=== PATIENT | male | born 1955 | race Caucasian/White ===

== ENCOUNTER 2020-10-09 19:08 | Observation (INO) | payer BC ==
[2020-10-09] MEDS ORDERED: Sodium Chloride 0.9% 10 ML Syringe FLUSH PRN (19:30)
[2020-10-09] MEDS ORDERED: Sodium Chloride 0.9% 2.5 ML Syringe FLUSH PRN (19:30)
[2020-10-09] MEDS ORDERED: Aspirin 81 MG Tab.Chew PO ONE (19:30)
[2020-10-09] MEDS: Nitroglycerin 0.4 MG Tab.SL SL PRN ×3 (19:39→19:49)
--- NOTE | 2020-10-09 20:06 | CR ---
For Patients: As a result of the Cures Act, medical imaging exams and procedure reports are released immediately into your electronic medical record. You may view this report before your referring provider. If you have questions, please contact your health care provider. INDICATION: Shortness of breath TECHNIQUE: Chest radiograph 1 view COMPARISON: None FINDINGS: Moderate degradation of image quality noted due to body habitus. Mediastinum: The mediastinum is normal in appearance. Moderate cardiomegaly is noted but may be accentuated by portable technique. Lung: Mild bibasilar subsegmental atelectasis is present within the medial lung bases. No sign of pleural effusion seen. No pneumothorax is identified. Bone and Soft tissue: Unremarkable for age. IMPRESSION: 1. Moderate cardiomegaly is noted but may be accentuated by portable technique. Dictated by Jose Alejandro Leggett MD @ 10/09/2020 8:04:15 PM Dictated by: Jose Alejandro Leggett MD @ 10/09/2020 20:04:20 (Electronically Signed)
[2020-10-09] MEDS ORDERED: Morphine 4 MG/ML Syringe IVPUSH ONE ×2 (20:12→20:39)
[2020-10-09] MEDS ORDERED: Ondansetron 4 MG/2 ML SDV IVPUSH ONE (20:13)
[2020-10-09 20:15] LABS: BLOOD UREA NITROGEN,BUN 20 mg/dL (7.0-18.0); CARBON DIOXIDE,CO2 24.5 mmol/L (21.0-32.0); CHLORIDE,CL 104 mmol/L (98-107); GLUCOSE RANDOM 174 mg/dL (74-106); POTASSIUM,K 3.8 mmol/L (3.5-5.1); SODIUM,NA 139 mmol/L (136-148)
--- NOTE | 2020-10-09 20:42 | EDM.PDOC ---
ED HPI GENERAL MEDICAL PROBLEM - General Chief Complaint: Chest Pain Stated Complaint: CHEST PAINS Time Seen by Provider: 10/09/20 19:20 - History of Present Illness INITIAL COMMENTS - FREE TEXT/NARRATIVE: HISTORY AND PHYSICAL: History of present illness: This is a 65-year-old gentleman with a history significant for rate controlled atrial fibrillation who presents ER today complaining of chest pain and discomfort that started earlier this evening. Patient describes the pain as a pressure sensation in his midsternal area radiating to his scapula. Patient denies any pain rating to his jaw or arms. Patient reports that he has had associated diaphoresis and shortness of breath with the discomfort. Patient denies any nausea or vomiting. Patient reports no significant change with rest or exertion. Patient reports no significant change with deep inspiration or coughing. Patient reports that he has tried antacids at home without any improvement in his discomfort. 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 He reports that when he was at Dr. Hutchinson's office that they had discussed starting him on a anticoagulant as well as nitroglycerin but he has not received any nitroglycerin. Patient reports that he is currently not on any anticoagulation therapy for his atrial fibrillation nor has he been on any anticoagulation therapy in the past for his atrial fibrillation. Patient denies any recent fevers, shakes, chills, nausea, vomiting, diarrhea, dysuria, frequency, urgency, URI symptoms, abdominal pain. Review of systems: As per history of present illness and below otherwise all systems reviewed and negative. Past medical history: As per history of present illness and as reviewed below otherwise no ncontributory. Surgical history: As per history of present illness and as reviewed below otherwise noncontributory. Social history: No reported history of drug abuse. Family history: As per history of present illness and as reviewed below otherwise noncontributory. Physical exam: This patient was seen and evaluated during the 2019 SARS-CoV-2 novel coronavirus pandemic period. Community viral transmission is ongoing at time of this encounter and the emergency department is operating under pandemic response procedures. Constitutional: Patient is oriented to person, place, and time. Appears well- developed and well-nourished. No distress. HEENT: Moist mucous membranes Head: Normocephalic and atraumatic Eyes: Right eye exhibits no discharge. Left eye exhibits no discharge. No s cleral icterus Neck: Normal range of motion. No tracheal deviation present. Cardiovascular: Irregularly irregular heart rate of 84 Pulmonary: Effort normal, no respiratory distress. Abdominal: No distention Musculoskeletal: Normal range of motion Neurologic: Alert and oriented to person, place and time. Skin: [place], warm and dry. Psychiatric: Normal mood and affect. Behavior is normal. Judgment and thought content normal. Nursing note and vital signs have been reviewed Patient with nonreproducible anterior chest wall pain. Diagnostics: EKG: As interpreted by ER physician: [facility]ano: Nonspecific ST-T wave abnormalities Normal axis No evidence of ST elevation PA Atrial fibrillation with a heart rate of 104. Chest Xray: Slightly enlarged cardiac silhouette No infiltrates or effusions identified. No PTX No evidence of acute bony fracture. As interpreted by ER MD: [employer]: Aspirin 324 mg p.o. Sublingual nitroglycerin every 5 minutes x3 without any significant change in his pain or discomfort Morphine 4 mg IV x2 Assessment and plan: This is a 65-year-old gentleman with a history of atrial fibrillation who reports that he has had a negative stress test approximately 3 to 4 years ago who presents to the ER today secondary to intermittent episodes of chest pain and discomfort. Patient reports that this evening the pain started while doing slight amount of exertion and has been constant. Patient has been given nitroglycerin as well as morphine without any significant change in his pain. Patient's chest x-ray reveals cardiomegaly. Patient's D-dimer is negative. Patient's presentation does not appear to be consistent with a dissection or TAD. Given patient's age and symptoms, patient will be admitted to the hospital for further cardiac evaluation. Definitive disposition and diagnosis as appropriate pending reevaluation and review of above. chest Pain Score (Numeric/FACES): 7 - Related Data Allergies Allergy/AdvReac Type Severity Reaction Status Date / Time No Known Allergies Allergy Verified 10/09/20 19:20 Home Meds: Home Meds Metoprolol Succinate [Toprol XL] 25 mg PO DAILY 03/01/16 [History] Past Medical History HEENT History: Reports: Other (See Below) Other HEENT History: wears glasses Cardiovascular History: Reports: Arrhythmia Other Cardiovascular History: states takes Metoprolol for a cardiac arrythmia Respiratory History: Reports: None Gastrointestinal History: Reports: PUD Genitourinary History: Reports: Renal Calculus Musculoskeletal History: Reports: Fracture Neurological History: Reports: None Psychiatric History: Reports: None Endocrine/Metabolic History: Reports: Obesity/BMI 30+ Hematologic History: Reports: None Immunologic History: Reports: None Oncologic (Cancer) History: Reports: None Dermatologic History: Reports: None - Infectious Disease History Infectious Disease History: Reports: Chicken Pox, Mumps - Past Surgical History Head Surgeries/Procedures: Reports: None Cardiovascular Surgical History: Reports: None Male Surgical History: Reports: None Musculoskeletal Surgical History: Reports: Carpal Tunnel Social & Family History - Family History Family Medical History: No Pertinent Family History ED ROS GENERAL - Review of Systems Review Of Systems: See Below ED EXAM, GENERAL - Physical Exam Exam: See Below Course - Vital Signs Last Recorded V/S: Last Vital Signs Temp 97.0 F 10/09/20 19:21 Pulse 100 10/09/20 20:45 Resp 14 10/09/20 20:45 BP 116/71 10/09/20 20:45 Pulse Ox 95 10/09/20 20:45 - Orders/Labs/Meds Orders: Active Orders 24 hr Category Date Time Status Cardiac Monitoring [RC] . DIRECTED Care 10/09/20 19:30 Active EKG Documentation Completion [RC] AM Care 10/09/20 19:30 Active Pulse Oximetry [RC] ASDIRECTED Care 10/09/20 19:30 Active Sodium Chloride 0.9% [Saline Flush] Med 10/09/20 19:30 Active 10 ml FLUSH ASDIRECTED PRN Sodium Chloride 0.9% [Saline Flush] Med 10/09/20 19:30 Active 2.5 ml FLUSH ASDIRECTED PRN Saline Lock Insert [OM.PC] Stat Oth 10/09/20 19:30 Ordered Medication Orders Sodium Chloride (Sodium Chloride 0.9% 10 Ml Syringe) 10 ml FLUSH ASDIRECTED PRN PRN Reason: Keep Vein Open Last Admin: 10/09/20 19:53 Dose: 10 ml Documented by: [id number] Sodium Chloride (Sodium Chloride 0.9% 2.5 Ml Syringe) 2.5 ml FLUSH ASDIRECTED PRN PRN Reason: Keep Vein Open Last Admin: 10/09/20 19:53 Dose: 2.5 ml Documented by: [email or web address] Labs: Laboratory Tests 10/09/20 10/09/20 10/09/20 Range/Units 19:17 19:49 19:49 WBC 12.35 H (4.0-11.0) K/uL RBC 5.23 (4.50-5.90) M/uL Hgb 17.4 H (13.0-17.0) g/dL Hct 48.5 (38.0-50.0) % MCV 92.7 (80.0-98.0) fL MCH 33.3 H (27.0-32.0) pg MCHC 35.9 (31.0-37.0) g/dL RDW Std Deviation 46.5 (28.0-62.0) fl RDW Coeff of Ricardo 14 (11.0-15.0) % Plt Count 271 (150-400) K/uL MPV 11.00 (7.40-12.00) fL Neut % (Auto) 63.9 (48.0-80.0) % Lymph % (Auto) 25.5 (16.0-40.0) % Towner % (Auto) 7.7 (0.0-15.0) % Eos % (Auto) 2.7 (0.0-7.0) % Baso % (Auto) 0.2 (0.0-1.5) % Neut # (Auto) 7.9 H (1.4-5.7) K/uL Lymph # (Auto) 3.2 H (0.6-2.4) K/uL Towner # (Auto) 1.0 H (0.0-0.8) K/uL Eos # (Auto) 0.3 (0.0-0.7) K/uL Baso # (Auto) 0.0 (0.0-0.1) K/uL Nucleated RBC % 0.7 /100WBC Nucleated RBCs # 0 K/uL INR 1.06 APTT (18.6-31.3) SEC D-Dimer, Quantitative 0.48 (0.0-0.50) mg/L FEU Sodium 139 (136-148) mmol/L Potassium 3.8 (3.5-5.1) mmol/L Chloride 104 (98-107) mmol/L Carbon Dioxide 24.5 (21.0-32.0) mmol/L BUN 20 H (7.0-18.0) mg/dL Creatinine 1.5 H (0.8-1.3) mg/dL Est Cr Clr Drug Dosing 52.29 mL/min Estimated GFR (MDRD) 47.0 ml/min Glucose 174 H (74-106) mg/dL Calcium 7.9 L (8.5-10.1) mg/dL Magnesium 1.9 (1.8-2.4) mg/dL Total Bilirubin 0.4 (0.2-1.0) mg/dL AST 16 (15-37) IU/L ALT 19 (14-63) IU/L Alkaline Phosphatase 71 (46-116) U/L Troponin I < 0.050 (0.000-0.056) ng/mL B-Natriuretic Peptide (<100) PG/ML Total Protein 6.5 (6.4-8.2) g/dL Albumin 3.3 L (3.4-5.0) g/dL Globulin 3.2 (2.6-4.0) g/dL Albumin/Globulin Ratio 1.0 (0.9-1.6) 10/09/20 10/09/20 Range/Units 19:49 19:49 WBC (4.0-11.0) K/uL RBC (4.50-5.90) M/uL Hgb (13.0-17.0) g/dL Hct (38.0-50.0) % MCV (80.0-98.0) fL MCH (27.0-32.0) pg MCHC (31.0-37.0) g/dL RDW Std Deviation (28.0-62.0) fl RDW Coeff of Ricardo (11.0-15.0) % Plt Count (150-400) K/uL MPV (7.40-12.00) fL Neut % (Auto) (48.0-80.0) % Lymph % (Auto) (16.0-40.0) % Towner % (Auto) (0.0-15.0) % Eos % (Auto) (0.0-7.0) % Baso % (Auto) (0.0-1.5) % Neut # (Auto) (1.4-5.7) K/uL Lymph # (Auto) (0.6-2.4) K/uL Towner # (Auto) (0.0-0.8) K/uL Eos # (Auto) (0.0-0.7) K/uL Baso # (Auto) (0.0-0.1) K/uL Nucleated RBC % /100WBC Nucleated RBCs # K/uL INR APTT 22.5 (18.6-31.3) SEC D-Dimer, Quantitative (0.0-0.50) mg/L FEU Sodium (136-148) mmol/L Potassium (3.5-5.1) mmol/L Chloride (98-107) mmol/L Carbon Dioxide (21.0-32.0) mmol/L BUN (7.0-18.0) mg/dL Creatinine (0.8-1.3) mg/dL Est Cr Clr Drug Dosing mL/min Estimated GFR (MDRD) ml/min Glucose (74-106) mg/dL Calcium (8.5-10.1) mg/dL Magnesium (1.8-2.4) mg/dL Total Bilirubin (0.2-1.0) mg/dL AST (15-37) IU/L ALT (14-63) IU/L Alkaline Phosphatase (46-116) U/L Troponin I (0.000-0.056) ng/mL B-Natriuretic Peptide 82 (<100) PG/ML Total Protein (6.4-8.2) g/dL Albumin (3.4-5.0) g/dL Globulin (2.6-4.0) g/dL Albumin/Globulin Ratio (0.9-1.6) Meds: Medications Generic Name Dose Route Start Last Admin Trade Name Freq PRN Reason Stop Dose Admin Sodium Chloride 10 ml 10/09/20 19:30 10/09/20 19:53 Sodium Chloride 0.9% 10 Ml Syringe FLUSH 10 ml ASDIRECTED PRN Administration Keep Vein Open Sodium Chloride 2.5 ml 10/09/20 19:30 10/09/20 19:53 Sodium Chloride 0.9% 2.5 Ml Syringe FLUSH 2.5 ml ASDIRECTED PRN Administration Keep Vein Open Discontinued Medications Generic Name Dose Route Start Last Admin Trade Name Freq PRN Reason Stop Dose Admin Aspirin 324 mg 10/09/20 19:30 10/09/20 19:39 Aspirin 81 Mg Tab.Chew PO 10/09/20 19:31 324 mg ONETIME ONE Administration Morphine Sulfate 4 mg 10/09/20 20:12 10/09/20 20:19 Morphine 4 Mg/Ml Syringe IVPUSH 10/09/20 20:13 4 mg ONETIME ONE Administration Morphine Sulfate 4 mg 10/09/20 20:39 10/09/20 20:48 Morphine 4 Mg/Ml Syringe IVPUSH 10/09/20 20:40 4 mg ONETIME ONE Administration Nitroglycerin 0.4 mg 10/09/20 19:30 10/09/20 19:49 Nitroglycerin 0.4 Mg Tab.Sl SL 0.4 mg Q5M PRN Administration Chest Pain Ondansetron HCl 4 mg 10/09/20 20:13 10/09/20 20:19 Ondansetron 4 Mg/2 Ml Sdv IVPUSH 10/09/20 20:14 4 mg ONETIME ONE Administration Departure - Departure Time of Disposition: 20:42 Disposition: Refer to Observation Condition: Good Clinical Impression: Acute coronary syndrome - Discharge Information Sepsis Event Note (ED) - Evaluation Sepsis Screening Result: No Definite Risk - Focused Exam Vital Signs: Vital Signs Temp Pulse Resp BP BP Pulse Ox 10/09/20 19:49 126/77 10/09/20 19:43 133/78 10/09/20 19:39 118/82 10/09/20 19:21 97.0 F 107 H 18 118/82 99 - My Orders Last 24 Hours: My Active Orders 10/09/20 19:30 Cardiac Monitoring [RC] . DIRECTED EKG Documentation Completion [RC] AM Pulse Oximetry [RC] ASDIRECTED Sodium Chloride 0.9% [Saline Flush] 10 ml FLUSH ASDIRECTED PRN Sodium Chloride 0.9% [Saline Flush] 2.5 ml FLUSH ASDIRECTED PRN Saline Lock Insert [OM.PC] Stat - Assessment/Plan Last 24 Hours: My Active Orders 10/09/20 19:30 Cardiac Monitoring [RC] . DIRECTED EKG Documentation Completion [RC] AM Pulse Oximetry [RC] ASDIRECTED Sodium Chloride 0.9% [Saline Flush] 10 ml FLUSH ASDIRECTED PRN Sodium Chloride 0.9% [Saline Flush] 2.5 ml FLUSH ASDIRECTED PRN Saline Lock Insert [OM.PC] Stat
[2020-10-09 22:51] VITALS: BP 134/79
[2020-10-09] MEDS ORDERED: Alum Hydrox/Mag Hydrox/Simeth 15 ML, Lidocaine 2% 5 ML PO ONE ×2 (23:19)
[2020-10-09] MEDS ORDERED: Sodium Chloride 0.9% 500 ML IV SCH (23:30)
[2020-10-09] MEDS ORDERED: Metoprolol Tartrate 50 MG Tab PO SCH (23:30)
--- NOTE | 2020-10-09 23:41 | PCM.HP.2 ---
H&P History of Present Illness - General Date of Service: 10/09/20 Admit Problem/Dx: Admission Diagnosis/Problem Admission Diagnosis/Problem Acute coronary syndrome - History of Present Illness Initial Comments - Free Text/Narative: 65 yo male with pmh atrial fibrillation who presents to the ER with complaints of chest pain. For the past month patient has reported episodic chest pressure that is substernal, nonradiating. Exercise makes pain worse but rest makes it better. He has assoicitated symptoms of shortness of breath. He saw Dr. Bull who prescribed him nitro and eliquis with referal to stress testing. He has not started taking Eliquis yet. Around six tonight he developed chest pain again but it did not improve so he went to the ED. IN the ED he was noted to be in atrial fibrillation with HR in the 80s-100s. EKG showed atrial fibrillation HR 100, st segment depression in adriana v4-v5. He was given ASA, morphine and nitro with no change in his chest pain. chest Pain Score (Numeric/FACES): 7 - Related Data Allergies/Adverse Reactions: Allergies Allergy/AdvReac Type Severity Reaction Status Date / Time No Known Allergies Allergy Verified 10/09/20 22:50 Home Medications: Home Meds Apixaban [Eliquis] 5 mg PO DAILY 10/09/20 [History] Aspirin 81 mg PO DAILY 10/09/20 [History] Meloxicam 15 mg PO DAILY 10/09/20 [History] Metoprolol Succinate 50 mg PO DAILY 10/09/20 [History] Nitroglycerin 0.4 mg SL Q5M PRN 10/09/20 [History] Past Medical History HEENT History: Reports: Other (See Below) Other HEENT History: wears glasses Cardiovascular History: Reports: Arrhythmia Other Cardiovascular History: states takes Metoprolol for a cardiac arrythmia Respiratory History: Reports: None Gastrointestinal History: Reports: PUD Genitourinary History: Reports: Renal Calculus Musculoskeletal History: Reports: Fracture Neurological History: Reports: None Psychiatric History: Reports: None Endocrine/Metabolic History: Reports: Obesity/BMI 30+ Hematologic History: Reports: None Immunologic History: Reports: None Oncologic (Cancer) History: Reports: None Dermatologic History: Reports: None - Infectious Disease History Infectious Disease History: Reports: Chicken Pox, Mumps - Past Surgical History Head Surgeries/Procedures: Reports: None Cardiovascular Surgical History: Reports: None Male Surgical History: Reports: None Musculoskeletal Surgical History: Reports: Carpal Tunnel Social & Family History - Family History Family Medical History: No Pertinent Family History - Tobacco Use Tobacco Use Status *Q: Current Some Day Tobacco User Years of Tobacco use: 45 Packs/Tins Daily: 0.5 Used Tobacco, but Quit: No Second Hand Smoke Exposure: No - Caffeine Use Caffeine Use: Reports: Coffee Other Caffeine Use: 7 cups/day - Recreational Drug Use Recreational Drug Use: Yes Drug Use in Last 12 Months: Yes Recreational Drug Type: Reports: Marijuana/Hashish Recreational Drug Use Frequency: Monthly H&P Review of Systems - Review of Systems: Review Of Systems: Comprehensive ROS is negative, except as noted in HPI. Exam - Exam Exam: See Below - Vital Signs Vital Signs: Last Vital Signs Temp 35.7 C L 10/09/20 22:49 Pulse 97 10/09/20 22:49 Resp 19 10/09/20 22:49 BP 134/79 10/09/20 22:49 Pulse Ox 94 L 10/09/20 22:49 Weight: 103.464 kg - Exam General: Alert, Oriented HEENT: Mucosa Moist & [place] Neck: Supple Lungs: Clear to Auscultation, Normal Respiratory Effort Cardiovascular: Regular Rhythm, Irregular Rhythm GI/Abdominal Exam: Soft, Non-Tender, No Distention Extremities: Normal Range of Motion, Non-Tender, No Pedal Edema Skin: Warm, Dry, Intact - Patient Data Lab Results Last 24 hrs: Laboratory Results - last 24 hr 10/09/20 10/09/20 10/09/20 Range/Units 19:17 19:49 19:49 WBC 12.35 H (4.0-11.0) K/uL RBC 5.23 (4.50-5.90) M/uL Hgb 17.4 H (13.0-17.0) g/dL Hct 48.5 (38.0-50.0) % MCV 92.7 (80.0-98.0) fL MCH 33.3 H (27.0-32.0) pg MCHC 35.9 (31.0-37.0) g/dL RDW Std Deviation 46.5 (28.0-62.0) fl RDW Coeff of Ricardo 14 (11.0-15.0) % Plt Count 271 (150-400) K/uL MPV 11.00 (7.40-12.00) fL Neut % (Auto) 63.9 (48.0-80.0) % Lymph % (Auto) 25.5 (16.0-40.0) % [place] % (Auto) 7.7 (0.0-15.0) % Eos % (Auto) 2.7 (0.0-7.0) % Baso % (Auto) 0.2 (0.0-1.5) % Neut # (Auto) 7.9 H (1.4-5.7) K/uL Lymph # (Auto) 3.2 H (0.6-2.4) K/uL Trinity # (Auto) 1.0 H (0.0-0.8) K/uL Eos # (Auto) 0.3 (0.0-0.7) K/uL Baso # (Auto) 0.0 (0.0-0.1) K/uL Nucleated RBC % 0.7 /100WBC Nucleated RBCs # 0 K/uL INR 1.06 APTT (18.6-31.3) SEC D-Dimer, Quantitative 0.48 (0.0-0.50) mg/L FEU Sodium 139 (136-148) mmol/L Potassium 3.8 (3.5-5.1) mmol/L Chloride 104 (98-107) mmol/L Carbon Dioxide 24.5 (21.0-32.0) mmol/L BUN 20 H (7.0-18.0) mg/dL Creatinine 1.5 H (0.8-1.3) mg/dL Est Cr Clr Drug Dosing 52.29 mL/min Estimated GFR (MDRD) 47.0 ml/min Glucose 174 H (74-106) mg/dL Calcium 7.9 L (8.5-10.1) mg/dL Magnesium 1.9 (1.8-2.4) mg/dL Total Bilirubin 0.4 (0.2-1.0) mg/dL AST 16 (15-37) IU/L ALT 19 (14-63) IU/L Alkaline Phosphatase 71 (46-116) U/L Troponin I < 0.050 (0.000-0.056) ng/mL B-Natriuretic Peptide (<100) PG/ML Total Protein 6.5 (6.4-8.2) g/dL Albumin 3.3 L (3.4-5.0) g/dL Globulin 3.2 (2.6-4.0) g/dL Albumin/Globulin Ratio 1.0 (0.9-1.6) SARS-CoV-2 RNA (YAIMA) (NEGATIVE) 10/09/20 10/09/20 10/09/20 Range/Units 19:49 19:49 20:47 WBC (4.0-11.0) K/uL RBC (4.50-5.90) M/uL Hgb (13.0-17.0) g/dL Hct (38.0-50.0) % MCV (80.0-98.0) fL MCH (27.0-32.0) pg MCHC (31.0-37.0) g/dL RDW Std Deviation (28.0-62.0) fl RDW Coeff of Ricardo (11.0-15.0) % Plt Count (150-400) K/uL MPV (7.40-12.00) fL Neut % (Auto) (48.0-80.0) % Lymph % (Auto) (16.0-40.0) % Trinity % (Auto) (0.0-15.0) % Eos % (Auto) (0.0-7.0) % Baso % (Auto) (0.0-1.5) % Neut # (Auto) (1.4-5.7) K/uL Lymph # (Auto) (0.6-2.4) K/uL Trinity # (Auto) (0.0-0.8) K/uL Eos # (Auto) (0.0-0.7) K/uL Baso # (Auto) (0.0-0.1) K/uL Nucleated RBC % /100WBC Nucleated RBCs # K/uL INR APTT 22.5 (18.6-31.3) SEC D-Dimer, Quantitative (0.0-0.50) mg/L FEU Sodium (136-148) mmol/L Potassium (3.5-5.1) mmol/L Chloride (98-107) mmol/L Carbon Dioxide (21.0-32.0) mmol/L BUN (7.0-18.0) mg/dL Creatinine (0.8-1.3) mg/dL Est Cr Clr Drug Dosing mL/min Estimated GFR (MDRD) ml/min Glucose (74-106) mg/dL Calcium (8.5-10.1) mg/dL Magnesium (1.8-2.4) mg/dL Total Bilirubin (0.2-1.0) mg/dL AST (15-37) IU/L ALT (14-63) IU/L Alkaline Phosphatase (46-116) U/L Troponin I (0.000-0.056) ng/mL B-Natriuretic Peptide 82 (<100) PG/ML Total Protein (6.4-8.2) g/dL Albumin (3.4-5.0) g/dL Globulin (2.6-4.0) g/dL Albumin/Globulin Ratio (0.9-1.6) SARS-CoV-2 RNA (YAIMA) NEGATIVE (NEGATIVE) Result Diagrams: 10/09/20 19:17 10/09/20 19:49 Sepsis Event Note - Evaluation Sepsis Screening Result: No Definite Risk - Focused Exam Vital Signs: Vital Signs Temp Pulse Resp BP BP Pulse Ox 10/09/20 22:49 35.7 C L 97 19 134/79 94 L 10/09/20 22:37 90 20 121/72 99 10/09/20 21:54 99 18 94 L 10/09/20 20:45 100 14 116/71 95 10/09/20 19:49 126/77 10/09/20 19:43 133/78 10/09/20 19:39 118/82 10/09/20 19:21 36.1 C 107 H 18 118/82 99 Problem List Initiated/Reviewed/Updated: Yes Orders Last 24hrs: Active Orders 24 hr Category Date Time Status Patient Status [ADT] Routine ADT 10/09/20 20:44 Active Accu Check [Blood Glucose Check, Bedside] [RC] TIDMEALS Care 10/09/20 23:32 Ordered Antiembolic Devices [RC] PER UNIT ROUTINE Care 10/09/20 23:29 Ordered Cardiac Monitoring [RC] Q8H Care 10/09/20 19:30 Active EKG 12 Lead [EKG Documentation Completion] [RC] STAT Care 10/09/20 23:14 Active EKG Documentation Completion [RC] AM Care 10/09/20 19:30 Active Oxygen Therapy [RC] PRN Care 10/09/20 23:23 Ordered Pulse Oximetry [RC] ASDIRECTED Care 10/09/20 19:30 Active Telemetry Monitoring [Cardiac Monitoring] [RC] . Care 10/09/20 23:33 Active DIRECTED Up ad Heide [RC] ASDIRECTED Care 10/09/20 23:28 Ordered VTE/DVT Education [RC] PER UNIT ROUTINE Care 10/09/20 23:23 Ordered Vital Signs [RC] Q4H Care 10/09/20 23:23 Ordered Regular Diet [DIET] Diet 10/09/20 Breakfast Ordered BASIC METABOLIC PANEL,BMP [CHEM] AM Lab 10/10/20 05:11 Ordered CBC W/O DIFF,HEMOGRAM [HEME] AM Lab 10/10/20 05:11 Ordered GLYCOSYLATED HEMOGLOBIN,HGBA1C [CHEM] AM Lab 10/10/20 05:11 Ordered TROPONIN I [CHEM] AM Lab 10/10/20 05:11 Ordered TROPONIN I [CHEM] Routine Lab 10/09/20 23:12 Received Metoprolol Tartrate [Lopressor] Med 10/09/20 23:30 Ordered 50 mg PO Q12H Sodium Chloride 0.9% [Normal Saline] 500 ml Med 10/09/20 23:30 Ordered IV .BOLUS Sodium Chloride 0.9% [Saline Flush] Med 10/09/20 19:30 Active 10 ml FLUSH ASDIRECTED PRN Sodium Chloride 0.9% [Saline Flush] Med 10/09/20 19:30 Active 2.5 ml FLUSH ASDIRECTED PRN Saline Lock Insert [OM.PC] Stat Oth 10/09/20 19:30 Ordered Sequential Compression Device [OM.PC] Per Unit Routine Oth 10/09/20 23:29 Ordered Resuscitation Status Routine Resus Stat 10/09/20 23:23 Ordered Medication Orders Sodium Chloride (Normal Saline) 500 mls @ 1,000 mls/hr IV .BOLUS CARY Metoprolol Tartrate (Metoprolol Tartrate 50 Mg Tab) 50 mg PO Q12H CARY Sodium Chloride (Sodium Chloride 0.9% 10 Ml Syringe) 10 ml FLUSH ASDIRECTED PRN PRN Reason: Keep Vein Open Last Admin: 10/09/20 19:53 Dose: 10 ml Documented by: [id number] Sodium Chloride (Sodium Chloride 0.9% 2.5 Ml Syringe) 2.5 ml FLUSH ASDIRECTED PRN PRN Reason: Keep Vein Open Last Admin: 10/09/20 19:53 Dose: 2.5 ml Documented by: [id number] Assessment/Plan Comment:: 65 yo male with pmh of atrial fibrillation who is admitted with chest pain. His second troponin increased to 0.6. We will give addition 50mg of metoprolol tartrate and 100mg of Lovenox sc. Patient's A.fib has remained in reasonable control. Due to bump in troponin and persistent chest pain will transfer for cardiology consultation. [facility] was called and Dr. Rae has accepted the patient.
[2020-10-09 23:44] VITALS: PULSE 103
[2020-10-10] MEDS ORDERED: Enoxaparin 100 MG/1 ML Syringe SUBCUT ONE (00:14)
[2020-10-10] MEDS ORDERED: Morphine 2 MG/ML SYRINGE IVPUSH PRN (00:22)
== END 2020-10-10 01:20 ==
LOC: MW.ED 19:08 → MW.MS 20:44
PROVIDERS: ADMIT Internal Medicine; ATTEND Internal Medicine
DX: R07.9 Chest pain, unspecified (principal); I48.91 Unspecified atrial fibrillation; E66.9 Obesity, unspecified; F17.210 Nicotine dependence, cigarettes, uncomplicated; Z79.899 Other long term (current) drug therapy; Z79.82 Long term (current) use of aspirin; Z20.822 Contact with and (suspected) exposure to COVID-19
CPT/HCPCS: 36415; 71045; 80053; 83735; 83880; 84484; 85025; 85379; 85610; 85730; 87635; 93005; A9270; J1650; J2270; J2405; J7040; U0002

== ENCOUNTER 2021-02-28 01:59 | Inpatient (IN) | payer BC ==
[2021-02-28] MEDS ORDERED: Aspirin 81 MG Tab.Chew PO ONE (02:11)
--- NOTE | 2021-02-28 02:44 | PCM.EKG ---
#1 Interpretation EKG Date: 02/28/21 Time: 02:00 Rhythm: A-Fib Rate (Beats/Min): 107 [place]: Normal P-Wave: Absent QRS: Normal ST-T: Normal (TWI) QT: Normal Comparison: No Change (10/09/20) EKG Interpretation Comments: Atrial Fibrillation #2 Interpretation EKG Date: 02/28/21 Time: 02:25 Rhythm: A-Fib Rate (Beats/Min): 81 [place]: Normal P-Wave: Absent QRS: Normal ST-T: Normal QT: Normal Comparison: No Change (today) EKG Interpretation Comments: Atrial Fibrillation
[2021-02-28 02:49] LABS: BLOOD UREA NITROGEN,BUN 26 mg/dL (7.0-18.0); CARBON DIOXIDE,CO2 24.9 mmol/L (21.0-32.0); CHLORIDE,CL 107 mmol/L (98-107); GLUCOSE RANDOM 101 mg/dL (74-106); POTASSIUM,K 4.1 mmol/L (3.5-5.1); SODIUM,NA 141 mmol/L (136-148)
--- NOTE | 2021-02-28 02:52 | CR ---
INDICATION: Chest pain. COMPARISON: 10/09/2020. FINDINGS: A portable AP view of the chest was obtained. There are sternotomy wires. There is a heart valve replacement. The cardiac silhouette is enlarged. There is a small right pleural effusion and probable minimal left pleural effusion. There is pulmonary vascular congestion. There is atelectasis in the right lung base. IMPRESSION: Pulmonary vascular congestion with a small right and probable minimal left pleural effusion. Cardiomegaly. Dictated by Nghia Jimenez MD @ 02/28/2021 2:50:56 AM (Electronically Signed)
[2021-02-28] MEDS ORDERED: Furosemide 40 MG/4 ML VIAL IVPUSH STA (02:57)
[2021-02-28 03:11] LABS: CORONAVIRUS COVID-19 NAA NEGATIVE (NEGATIVE); INFLUENZA A NAA NEGATIVE (NEGATIVE); INFLUENZA B NAA NEGATIVE (NEGATIVE)
--- NOTE | 2021-02-28 04:04 | EDM.PDOC ---
ED HPI GENERAL MEDICAL PROBLEM - General Chief Complaint: Chest Pain Stated Complaint: CHEST PAIN; SHORTNESS OF BREATH Time Seen by Provider: 02/28/21 02:17 - History of Present Illness INITIAL COMMENTS - FREE TEXT/NARRATIVE: CHIEF COMPLAINT(S): Chest pain and shortness of breath HISTORY OF PRESENT ILLNESS: This is a 65-year-old man with a past medical history of CAD status post CABG who comes to the emergency department with a chief complaint of chest pain and shortness of breath. The patient states that he was experiencing slight left-sided chest pain which she describes as uncomfortable feeling starting approximately 4 hours prior to arrival. He states that this pain does not radiate anywhere and rates it as 4-5 out of 10. He states that he took 2 nitroglycerin which seemed to help. He denies any exertional chest pain and denies any exacerbating factors. He states that he has some associated shortness of breath especially when he is lying down. He denies any cough, runny nose, congestion. He denies any lower extremity edema. He denies any recent travel, recent surgery or prior history of DVT or PE. She denies any history of CHF. REVIEW OF SYSTEMS: Constitutional: Denies fever, chills. Eyes: Denies eye pain Ears, Nose, Mouth, & Throat: Denies earache Cardiovascular: Positive for chest pain Respiratory: Positive for orthopnea and shortness of breath Gastrointestinal: Denies Nausea, vomiting, diarrhea, hematochezia. Genitourinary: Denies hematuria Skin:Denies a rash MSK: Denies joint pain Neurological: Denies blurred vision Psychiatric: Denies depression PAST MEDICAL HISTORY: As per history of present illness and as reviewed below otherwise noncontributory. SURGICAL HISTORY: As per history of present illness and as reviewed below otherwise noncontributory. SOCIAL HISTORY: As per history of present illness and as reviewed below otherwise noncontributory. FAMILY HISTORY: As per history of present illness and as reviewed below otherwise noncontributory. EXAMINATION OF ORGAN SYSTEMS/BODY AREAS: Constitutional: Blood pressure is 171/110, heart rate 103, respiratory rate 18 with an oxygen saturation of 95% on room air. Temperature 37.1 General: Middle-aged man who does not appear to be in acute distress Psychiatric: Appropriate mood and affect. Eyes: No scleral icterus or conjunctival erythema ENMT: Moist mucous membranes. No pharyngeal erythema Cardiovascular: Irregular rate and rhythm. No gallops, murmurs, or rubs. Bilateral upper extremity pulses symmetric and intact. No peripheral edema. No JVD. Respiratory: Bilateral rhonchorous breath sounds. Patient speaking in full sentences. No wheezing. Gastrointestinal: Soft, non-tender, non-distended. Normoactive bowel sounds Genitourinary: No suprapubic tenderness Musculoskeletal: Normal range of motion. Skin: No lesions or abrasions. Neurological: Alert, GCS 15 MEDICAL DECISION MAKING AND COURSE IN THE ED WITH INTERPRETATION/REVIEW OF DIAGNOSTIC STUDIES: This is a 65-year-old man with a past medical history of CAD status post CABG who comes to the emergency department with acute onset chest pain with shortness of breath who is hypertensive. At this time given the patient's history we did obtain a screening EKG which revealed atrial fibrillation without any signs of ischemia. The patient will undergo a cardiac work-up. At this time I do suspect the possibility of new onset heart failure given the patient's orthopnea and dyspnea. The patient is saturating approximately 92 to 93% on room air. The patient does not appear to be dyspneic. Patient has already taken nitroglycerin we will reevaluate blood pressure to see if there is need for additional medication. We will provide the patient with 3 and 24 mg of p.o. aspirin and reevaluate after labs and imaging DDx: ACS, heart failure exacerbation, musculoskeletal strain, pneumonia, COVID- 19 pneumonia Laboratory: CBC is unremarkable. CMP reveals elevated BUN at 26 and a creatinine of 1.5. Troponin is negative. BNP is 436. Covid and influenza are negative Given the duration of the patient's symptoms no additional troponins will be needed. The radiological images were viewed by myself along with reading the report from the radiologist. Chest x-ray reveals cardiomegaly with pulmonary edema and pleural effusion. On reevaluation patient's blood pressure had improved. At this time I did discuss the results with the patient. I discussed that he is likely experiencing new onset heart failure versus hypertensive emergency with pulmonary edema. I did discuss admission with the patient. He was amenable to this plan. At this time we will provide the patient with 40 mg of IV Lasix. I contacted hospitalist Dr. Larkin who accepted the patient for admission. DISPOSITION: Patient was admitted to the hospital in stable condition CONDITION: Serious PROCEDURES: Cardiac monitoring interpretation, pulse oximetry interpretation FINAL IMPRESSION(S)/DIAGNOSES: 1. Acute dyspnea likely secondary to new onset CHF 2. Acute hypertensive urgency Critical Care Procedure Note Authorized and performed by: Adrián Coley M.D. Critical Care Time: 45 minutes Due to a high probability of clinically significant, life threatening deterioration, the patient required my highest level of preparedness to intervene emergently and I personally spent this critical care time directly and personally managing the patient. This critical care time included obtaining a history, examining the patient, pulse oximetry; ordering and review of studies; arranging urgent treatment with development of a management plan; evaluation of a patients reponse to treatment; frequent assessment; and discussions with other providers. This critical care time was performed to assess and manage the high probability of imminent, life threatening deterioration that could result in multiorgan failure. It was exclusive of separate billable procedures and treating other patients. Please see MDM section and rest of the note for further information on patient assessment and treatment. Please see MDM section and rest of the note for further information on patient assessment and treatment. Adrián Coley M.D. Chest Pain Score (Numeric/FACES): 7 - Related Data Allergies Allergy/AdvReac Type Severity Reaction Status Date / Time No Known Allergies Allergy Verified 02/28/21 02:11 Home Meds: Home Meds Apixaban [Eliquis] 5 mg PO DAILY 10/09/20 [History] Aspirin 81 mg PO DAILY 10/09/20 [History] Meloxicam 15 mg PO DAILY 10/09/20 [History] Metoprolol Succinate 37.5 mg PO BID 10/09/20 [History] Nitroglycerin 0.4 mg SL Q5M PRN 10/09/20 [History] Digoxin 1 dose PO DAILY 02/28/21 [History] atorvaSTATin [Lipitor] 1 dose PO DAILY 02/28/21 [History] Past Medical History HEENT History: Reports: Other (See Below) Other HEENT History: wears glasses Cardiovascular History: Reports: Arrhythmia Other Cardiovascular History: states takes Metoprolol for a cardiac arrythmia Respiratory History: Reports: None Gastrointestinal History: Reports: PUD Genitourinary History: Reports: Renal Calculus Musculoskeletal History: Reports: Fracture, Other (See Below) Other Musculoskeletal History: R foot Neurological History: Reports: None Psychiatric History: Reports: None Endocrine/Metabolic History: Reports: Obesity/BMI 30+ Hematologic History: Reports: None Immunologic History: Reports: None Oncologic (Cancer) History: Reports: None Dermatologic History: Reports: None - Infectious Disease History Infectious Disease History: Reports: Chicken Pox, Mumps - Past Surgical History Head Surgeries/Procedures: Reports: None Cardiovascular Surgical History: Reports: None, Coronary Artery Bypass Other Cardiovascular Surgeries/Procedures: CABG in september following an [place] Male Surgical History: Reports: None Musculoskeletal Surgical History: Reports: Carpal Tunnel Social & Family History - Family History Family Medical History: No Pertinent Family History - Tobacco Use Tobacco Use Status *Q: Former Tobacco User Used Tobacco, but Quit: Yes Month/Year Tobacco Last Used: SEPTEMBER 2020 - Caffeine Use Caffeine Use: Reports: Coffee Other Caffeine Use: 7 cups/day ED ROS GENERAL - Review of Systems Review Of Systems: See Below ED EXAM, GENERAL - Physical Exam Exam: See Below Course - Vital Signs Last Recorded V/S: Last Vital Signs Temp 37.1 C 02/28/21 02:11 Pulse 82 02/28/21 03:13 Resp 17 02/28/21 03:13 BP 129/94 H 02/28/21 03:13 Pulse Ox 95 02/28/21 03:13 - Orders/Labs/Meds Orders: Active Orders 24 hr Category Date Time Status Cardiac Monitoring [RC] . DIRECTED Care 02/28/21 02:11 Active Pulse Oximetry [RC] ASDIRECTED Care 02/28/21 02:11 Active Labs: Laboratory Tests 02/28/21 02/28/21 02/28/21 Range/Units 02:10 02:10 02:10 WBC 9.04 (4.0-11.0) K/uL RBC 5.00 (4.50-5.90) M/uL Hgb 15.6 (13.0-17.0) g/dL Hct 46.3 (38.0-50.0) % MCV 92.6 (80.0-98.0) fL MCH 31.2 (27.0-32.0) pg MCHC 33.7 (31.0-37.0) g/dL RDW Std Deviation 49.3 (28.0-62.0) fl RDW Coeff of Ricardo 14 (11.0-15.0) % Plt Count 195 (150-400) K/uL MPV 10.00 (7.40-12.00) fL Neut % (Auto) 48.2 (48.0-80.0) % Lymph % (Auto) 33.3 (16.0-40.0) % [place] % (Auto) 12.3 (0.0-15.0) % Eos % (Auto) 5.5 (0.0-7.0) % Baso % (Auto) 0.7 (0.0-1.5) % Neut # (Auto) 4.4 (1.4-5.7) K/uL Lymph # (Auto) 3.0 H (0.6-2.4) K/uL [place] # (Auto) 1.1 H (0.0-0.8) K/uL Eos # (Auto) 0.5 (0.0-0.7) K/uL Baso # (Auto) 0.1 (0.0-0.1) K/uL Nucleated RBC % 0.0 /100WBC Nucleated RBCs # 0 K/uL Sodium 141 (136-148) mmol/L Potassium 4.1 (3.5-5.1) mmol/L Chloride 107 (98-107) mmol/L Carbon Dioxide 24.9 (21.0-32.0) mmol/L BUN 26 H (7.0-18.0) mg/dL Creatinine 1.5 H (0.8-1.3) mg/dL Est Cr Clr Drug Dosing TNP Estimated GFR (MDRD) 47.0 ml/min Glucose 101 (74-106) mg/dL Calcium 8.5 (8.5-10.1) mg/dL Magnesium 2.1 (1.8-2.4) mg/dL Total Bilirubin 1.0 (0.2-1.0) mg/dL AST 31 (15-37) IU/L ALT 42 (14-63) IU/L Alkaline Phosphatase 115 (46-116) U/L Troponin I < 0.050 (0.000-0.056) ng/mL B-Natriuretic Peptide 436 H (<100) PG/ML Total Protein 8.0 (6.4-8.2) g/dL Albumin 3.7 (3.4-5.0) g/dL Globulin 4.3 H (2.6-4.0) g/dL Albumin/Globulin Ratio 0.9 (0.9-1.6) Influenza Type A RNA (NEGATIVE) Influenza Type B RNA (NEGATIVE) SARS-CoV-2 RNA (YAIMA) (NEGATIVE) 02/28/21 Range/Units 02:25 WBC (4.0-11.0) K/uL RBC (4.50-5.90) M/uL Hgb (13.0-17.0) g/dL Hct (38.0-50.0) % MCV (80.0-98.0) fL MCH (27.0-32.0) pg MCHC (31.0-37.0) g/dL RDW Std Deviation (28.0-62.0) fl RDW Coeff of Ricardo (11.0-15.0) % Plt Count (150-400) K/uL MPV (7.40-12.00) fL Neut % (Auto) (48.0-80.0) % Lymph % (Auto) (16.0-40.0) % [place] % (Auto) (0.0-15.0) % Eos % (Auto) (0.0-7.0) % Baso % (Auto) (0.0-1.5) % Neut # (Auto) (1.4-5.7) K/uL Lymph # (Auto) (0.6-2.4) K/uL [place] # (Auto) (0.0-0.8) K/uL Eos # (Auto) (0.0-0.7) K/uL Baso # (Auto) (0.0-0.1) K/uL Nucleated RBC % /100WBC Nucleated RBCs # K/uL Sodium (136-148) mmol/L Potassium (3.5-5.1) mmol/L Chloride (98-107) mmol/L Carbon Dioxide (21.0-32.0) mmol/L BUN (7.0-18.0) mg/dL Creatinine (0.8-1.3) mg/dL Est Cr Clr Drug Dosing Estimated GFR (MDRD) ml/min Glucose (74-106) mg/dL Calcium (8.5-10.1) mg/dL Magnesium (1.8-2.4) mg/dL Total Bilirubin (0.2-1.0) mg/dL AST (15-37) IU/L ALT (14-63) IU/L Alkaline Phosphatase (46-116) U/L Troponin I (0.000-0.056) ng/mL B-Natriuretic Peptide (<100) PG/ML Total Protein (6.4-8.2) g/dL Albumin (3.4-5.0) g/dL Globulin (2.6-4.0) g/dL Albumin/Globulin Ratio (0.9-1.6) Influenza Type A RNA NEGATIVE (NEGATIVE) Influenza Type B RNA NEGATIVE (NEGATIVE) SARS-CoV-2 RNA (YAIMA) NEGATIVE (NEGATIVE) Meds: Medications Discontinued Medications Generic Name Dose Route Start Last Admin Trade Name Freq PRN Reason Stop Dose Admin Aspirin 324 mg 02/28/21 02:11 02/28/21 02:20 Aspirin 81 Mg Tab.Chew PO 02/28/21 02:12 324 mg ONETIME ONE Administration Furosemide 40 mg 02/28/21 02:57 02/28/21 03:11 Furosemide 40 Mg/4 Ml Vial IVPUSH 02/28/21 02:58 40 mg ONETIME STA Administration Departure - Departure Time of Disposition: 03:31 Disposition: Admitted As Inpatient 66 Condition: Serious Clinical Impression: Atrial fibrillation, CHF (congestive heart failure) - Discharge Information Sepsis Event Note (ED) - Evaluation Sepsis Screening Result: No Definite Risk - Focused Exam Vital Signs: Vital Signs Temp Pulse Resp BP Pulse Ox 02/28/21 03:13 82 17 129/94 H 95 02/28/21 02:33 82 17 129/102 H 95 02/28/21 02:11 37.1 C 103 H 18 171/110 H 95 - My Orders Last 24 Hours: My Active Orders 02/28/21 02:11 Cardiac Monitoring [RC] . DIRECTED Pulse Oximetry [RC] ASDIRECTED - Assessment/Plan Last 24 Hours: My Active Orders 02/28/21 02:11 Cardiac Monitoring [RC] . DIRECTED Pulse Oximetry [RC] ASDIRECTED
--- NOTE | 2021-02-28 08:56 | PCM.HP.2 ---
H&P History of Present Illness - General Date of Service: 02/28/21 Admit Problem/Dx: Admission Diagnosis/Problem Admission Diagnosis/Problem Heart failure - History of Present Illness Initial Comments - Free Text/Narative: The patient is a 65-year-old male on day 1 of service, who has a significant past medical history of coronary artery disease status post CABG in September 2020 and atrial fibrillation on anticoagulation and metoprolol, who was admitted to the medical floor due to new onset congestive heart failure. Upon interview with the patient today he says that yesterday he started to have slight shortness of breath and left sided chest pain, 4/10 in intensity, dull in nature, nonradiating, and not associated with diaphoresis, palpitations, neck pain, arm pain, or exertion. Furthermore, the patient admits that since his heart issues earlier this year he has been following a strict diet and trying to obtain exercise. I spoke to Dr. Le, the patient's flatwork finisher who reveals that he is on different medications for atrial fibrillation and CAD, and that this patient has been compliant with medication and lifestyle modifications. The patient denies any recent travel, stress, sick contacts, smoking, or issues with urination and/or defecation. He has no known drug allergies. He smoked for 30 years, a full pack a day, but quit 15 years ago. He denies alcohol consumption and recreational drug use. His family history is significant for hypertension in his mother. He has no other health concerns at this time. On CBC, white blood cell count is 9.04, hemoglobin is 15.6, hematocrit is 46.3, and platelet count is 195. On CMP, sodium is 141, potassium is 4.1, chloride is 107, carbon dioxide is 24.9, creatinine is 1.5, BUN is 26, troponins are less than 0.050, BNP is elevated at 436 Chest x-ray shows cardiomegaly, as well as pulmonary edema and effusion In the emergency department the patient received aspirin 324 mg once per oral route, and also received Lasix 40 mg per IV route once. He also had the above test done including a CBC, CMP, and a chest x-ray. Chest Pain Score (Numeric/FACES): 7 - Related Data Allergies/Adverse Reactions: Allergies Allergy/AdvReac Type Severity Reaction Status Date / Time No Known Allergies Allergy Verified 02/28/21 05:05 Home Medications: Home Meds Apixaban [Eliquis] 5 mg PO BID 10/09/20 [History] Aspirin 81 mg PO DAILY 10/09/20 [History] Meloxicam 15 mg PO DAILY 10/09/20 [History] Metoprolol Succinate 37.5 mg PO BID 10/09/20 [History] Nitroglycerin 0.4 mg SL Q5M PRN 10/09/20 [History] Digoxin 1 dose PO DAILY 02/28/21 [History] atorvaSTATin [Lipitor] 1 dose PO DAILY 02/28/21 [History] Past Medical History HEENT History: Reports: Other (See Below) Other HEENT History: wears glasses Cardiovascular History: Reports: Arrhythmia Other Cardiovascular History: states takes Metoprolol for a cardiac arrythmia Respiratory History: Reports: None Gastrointestinal History: Reports: PUD Genitourinary History: Reports: Renal Calculus Musculoskeletal History: Reports: Fracture, Other (See Below) Other Musculoskeletal History: R foot Neurological History: Reports: None Psychiatric History: Reports: None Endocrine/Metabolic History: Reports: Obesity/BMI 30+ Hematologic History: Reports: None Immunologic History: Reports: None Oncologic (Cancer) History: Reports: None Dermatologic History: Reports: None - Infectious Disease History Infectious Disease History: Reports: Chicken Pox, Mumps - Past Surgical History Head Surgeries/Procedures: Reports: None Cardiovascular Surgical History: Reports: None, Coronary Artery Bypass Other Cardiovascular Surgeries/Procedures: CABG in september following an [place] Male Surgical History: Reports: None Musculoskeletal Surgical History: Reports: Carpal Tunnel Social & Family History - Family History Family Medical History: No Pertinent Family History - Tobacco Use Tobacco Use Status *Q: Former Tobacco User Used Tobacco, but Quit: Yes Month/Year Tobacco Last Used: 03/2020 - Caffeine Use Caffeine Use: Reports: Coffee, Soda Other Caffeine Use: 7 cups/day - Recreational Drug Use Recreational Drug Use: No H&P Review of Systems - Review of Systems: Review Of Systems: See Below General: Denies: Fever, Chills, Diaphoresis HEENT: Denies: Headaches, Sore Throat Pulmonary: Reports: Shortness of Breath. Denies: Wheezing, Cough Cardiovascular: Reports: Chest Pain. Denies: Palpitations Gastrointestinal: Denies: Abdominal Pain, Nausea, Vomiting Genitourinary: Denies: Dysuria Exam - Exam Exam: See Below - Vital Signs Vital Signs: Last Vital Signs Temp 97.9 F 02/28/21 08:25 Pulse 107 H 02/28/21 08:25 Resp 16 02/28/21 08:25 BP 127/84 02/28/21 08:25 Pulse Ox 96 02/28/21 08:25 Weight: 218 lb 3.2 oz - Exam General: Alert, Oriented, Cooperative HEENT: Mucosa Moist & [place] Neck: Supple, Trachea Midline Lungs: Rhonchi Cardiovascular: Irregular Rhythm GI/Abdominal Exam: Normal Bowel Sounds, Soft, Non-Tender Extremities: No: No Pedal Edema - Patient Data Lab Results Last 24 hrs: Laboratory Results - last 24 hr 02/28/21 02/28/21 02/28/21 Range/Units 02:10 02:10 02:10 WBC 9.04 (4.0-11.0) K/uL RBC 5.00 (4.50-5.90) M/uL Hgb 15.6 (13.0-17.0) g/dL Hct 46.3 (38.0-50.0) % MCV 92.6 (80.0-98.0) fL MCH 31.2 (27.0-32.0) pg MCHC 33.7 (31.0-37.0) g/dL RDW Std Deviation 49.3 (28.0-62.0) fl RDW Coeff of Ricardo 14 (11.0-15.0) % Plt Count 195 (150-400) K/uL MPV 10.00 (7.40-12.00) fL Neut % (Auto) 48.2 (48.0-80.0) % Lymph % (Auto) 33.3 (16.0-40.0) % [place] % (Auto) 12.3 (0.0-15.0) % Eos % (Auto) 5.5 (0.0-7.0) % Baso % (Auto) 0.7 (0.0-1.5) % Neut # (Auto) 4.4 (1.4-5.7) K/uL Lymph # (Auto) 3.0 H (0.6-2.4) K/uL [place] # (Auto) 1.1 H (0.0-0.8) K/uL Eos # (Auto) 0.5 (0.0-0.7) K/uL Baso # (Auto) 0.1 (0.0-0.1) K/uL Nucleated RBC % 0.0 /100WBC Nucleated RBCs # 0 K/uL Sodium 141 (136-148) mmol/L Potassium 4.1 (3.5-5.1) mmol/L Chloride 107 (98-107) mmol/L Carbon Dioxide 24.9 (21.0-32.0) mmol/L BUN 26 H (7.0-18.0) mg/dL Creatinine 1.5 H (0.8-1.3) mg/dL Est Cr Clr Drug Dosing TNP Estimated GFR (MDRD) 47.0 ml/min Glucose 101 (74-106) mg/dL Calcium 8.5 (8.5-10.1) mg/dL Magnesium 2.1 (1.8-2.4) mg/dL Total Bilirubin 1.0 (0.2-1.0) mg/dL AST 31 (15-37) IU/L ALT 42 (14-63) IU/L Alkaline Phosphatase 115 (46-116) U/L Troponin I < 0.050 (0.000-0.056) ng/mL B-Natriuretic Peptide 436 H (<100) PG/ML Total Protein 8.0 (6.4-8.2) g/dL Albumin 3.7 (3.4-5.0) g/dL Globulin 4.3 H (2.6-4.0) g/dL Albumin/Globulin Ratio 0.9 (0.9-1.6) Influenza Type A RNA (NEGATIVE) Influenza Type B RNA (NEGATIVE) SARS-CoV-2 RNA (YAIMA) (NEGATIVE) 02/28/21 Range/Units 02:25 WBC (4.0-11.0) K/uL RBC (4.50-5.90) M/uL Hgb (13.0-17.0) g/dL Hct (38.0-50.0) % MCV (80.0-98.0) fL MCH (27.0-32.0) pg MCHC (31.0-37.0) g/dL RDW Std Deviation (28.0-62.0) fl RDW Coeff of Ricardo (11.0-15.0) % Plt Count (150-400) K/uL MPV (7.40-12.00) fL Neut % (Auto) (48.0-80.0) % Lymph % (Auto) (16.0-40.0) % [place] % (Auto) (0.0-15.0) % Eos % (Auto) (0.0-7.0) % Baso % (Auto) (0.0-1.5) % Neut # (Auto) (1.4-5.7) K/uL Lymph # (Auto) (0.6-2.4) K/uL [place] # (Auto) (0.0-0.8) K/uL Eos # (Auto) (0.0-0.7) K/uL Baso # (Auto) (0.0-0.1) K/uL Nucleated RBC % /100WBC Nucleated RBCs # K/uL Sodium (136-148) mmol/L Potassium (3.5-5.1) mmol/L Chloride (98-107) mmol/L Carbon Dioxide (21.0-32.0) mmol/L BUN (7.0-18.0) mg/dL Creatinine (0.8-1.3) mg/dL Est Cr Clr Drug Dosing Estimated GFR (MDRD) ml/min Glucose (74-106) mg/dL Calcium (8.5-10.1) mg/dL Magnesium (1.8-2.4) mg/dL Total Bilirubin (0.2-1.0) mg/dL AST (15-37) IU/L ALT (14-63) IU/L Alkaline Phosphatase (46-116) U/L Troponin I (0.000-0.056) ng/mL B-Natriuretic Peptide (<100) PG/ML Total Protein (6.4-8.2) g/dL Albumin (3.4-5.0) g/dL Globulin (2.6-4.0) g/dL Albumin/Globulin Ratio (0.9-1.6) Influenza Type A RNA NEGATIVE (NEGATIVE) Influenza Type B RNA NEGATIVE (NEGATIVE) SARS-CoV-2 RNA (YAIMA) NEGATIVE (NEGATIVE) Result Diagrams: 02/28/21 02:10 02/28/21 02:10 Sepsis Event Note - Evaluation Sepsis Screening Result: No Definite Risk - Focused Exam Vital Signs: Vital Signs Temp Pulse Resp BP Pulse Ox 02/28/21 08:25 97.9 F 107 H 16 127/84 96 02/28/21 04:40 97.4 F 95 18 131/92 H 99 02/28/21 04:17 95 18 142/102 H 96 02/28/21 03:13 82 17 129/94 H 95 02/28/21 02:33 82 17 129/102 H 95 02/28/21 02:11 98.7 F 103 H 18 171/110 H 95 - Problem List (1) CAD (coronary artery disease) SNOMED Code(s): 60263743 ICD Code: I25.10 - ATHSCL HEART DISEASE OF [place] CORONARY ARTERY W/O ANG PCTRS Status: Acute Current Visit: Yes (2) ANAMIKA (acute kidney injury) SNOMED Code(s): 57735972, 66451447 ICD Code: N17.9 - ACUTE KIDNEY FAILURE, UNSPECIFIED Status: Acute Current Visit: Yes (3) Atrial fibrillation SNOMED Code(s): 43713102 ICD Code: I48.91 - UNSPECIFIED ATRIAL FIBRILLATION Status: Acute Current Visit: Yes (4) CHF (congestive heart failure) SNOMED Code(s): 14100905 ICD Code: I50.9 - HEART FAILURE, UNSPECIFIED Status: Acute Current Visit: Yes Problem List Initiated/Reviewed/Updated: Yes Orders Last 24hrs: Active Orders 24 hr Category Date Time Status Admission Status [Patient Status] [ADT] Stat ADT 02/28/21 03:31 Active Cardiac Monitoring [RC] . DIRECTED Care 02/28/21 02:11 Active Cardiac Monitoring [RC] . DIRECTED Care 02/28/21 03:31 Active Pulse Oximetry [RC] ASDIRECTED Care 02/28/21 02:11 Active TROPONIN I [CHEM] Routine Lab 02/28/21 08:41 Ordered Assessment/Plan Comment:: Admit the patient to the medical floor, vitals per unit routine, activity up ad charmaine., heart healthy diet, DVT prophylaxis with Eliquis 5 mg per oral route twice a day which will also cover A. fib, GI prophylaxis with pantoprazole 40 mg per oral route once a day, the patient is full code 1. Congestive heart failure -Dr. Le, the patient's flatwork finisher in [place] has been notified of his newfound CHF and gave recommendations which match with our policy here at the hospital. Dr. Le also gave insight on what medications to continue for the patient's other heart issues. He helped outline the treatment that is listed below: -We have initiated Lasix 40 mg per IV route once a day -An echocardiogram has also been ordered -The patient is on a motor brakeman 2. Atrial fibrillation -Continue patient's Eliquis 5 mg per oral route twice a day -Continue patient's metoprolol 3. Coronary artery disease status post CABG -Continue the patient's aspirin 81 mg per oral route -Continue the patient's atorvastatin per oral route 4. ANAMIKA -Patient has fluid in his lungs and as a result they may be a transient increase in creatinine when diuresing -Continue to monitor with daily CMP
[2021-02-28] MEDS ORDERED: Enoxaparin 40 MG/0.4 ML Syringe SUBCUT SCH (12:00)
[2021-02-28] MEDS: Metoprolol Succinate 50 MG Tab.ER PO SCH ×2 (12:07→22:08)
[2021-02-28] MEDS: Furosemide 40 MG/4 ML VIAL IVPUSH SCH (12:37)
[2021-02-28] MEDS: atorvaSTATin 40 MG Tab PO SCH (12:38)
[2021-02-28] MEDS: Apixaban 5 MG Tab PO SCH ×2 (12:38→22:08)
[2021-02-28] MEDS: Aspirin 81 MG Tab.Chew PO SCH (12:38)
[2021-02-28] MEDS: Pantoprazole 40 MG Tab.CR PO SCH (12:38)
[2021-02-28] MEDS ORDERED: Acetaminophen 325 MG Tab PO PRN (22:31)
[2021-03-01 06:27] LABS: CARBON DIOXIDE,CO2 30.1 mmol/L (21.0-32.0); POTASSIUM,K 4.3 mmol/L (3.5-5.1)
[2021-03-01 07:53] VITALS: PULSE 80
[2021-03-01] MEDS: atorvaSTATin 40 MG Tab PO SCH (09:57)
[2021-03-01] MEDS: Aspirin 81 MG Tab.Chew PO SCH (09:57)
[2021-03-01] MEDS: Metoprolol Succinate 50 MG Tab.ER PO SCH (09:58)
[2021-03-01] MEDS: Pantoprazole 40 MG Tab.CR PO SCH (09:59)
[2021-03-01] MEDS: Furosemide 40 MG/4 ML VIAL IVPUSH SCH (09:59)
[2021-03-01] MEDS: Apixaban 5 MG Tab PO SCH (09:59)
--- NOTE | 2021-03-01 11:49 | PCM.DCSUM1 ---
Discharge Summary - Hospital Course Free Text/Narrative:: The patient is a 65-year-old male on day 2 of service, who has a significant past medical history of coronary artery disease status post CABG in September 2020 and atrial fibrillation on anticoagulation and metoprolol, who was admitted to the medical floor due to new onset congestive heart failure. Throughout the patient's hospital stay his chest pain gradually decreased to the point where it is no longer felt. He had an echocardiogram done which showed a preserved ejection fraction of 50%. 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 While in the hospital he was treated with Lasix per IV route, and will be sent home with an oral formulation of the same medication, 20 mg to be taken once a day. He is also to be compliant with his other cardiac medications and to take them at scheduled times. The patient has been counseled on following a heart healthy diet, obtaining exercise at least 3 times a week with cardiovascular being the mainstay of physical motion. He has also been advised to limit his sodium intake and to abstain from cigarette smoking. The patient has been counseled on returning to the hospital if he has increasing chest pain, palpitations, shortness of breath, respiratory difficulty, diaphoresis, neck or jaw pain, and dizziness. The patient is now stable and can be discharged. He will obtain medications for free from [facility] but due to closure today, in the meantime he will purchase 2 weeks worth of Lasix from [facility]. - Discharge Data Discharge Date: 03/01/21 Discharge Disposition: Home, Self-Care 01 Condition: Stable - Referral to Home Health Primary Care Physician: PCP None - Discharge Diagnosis/Problem(s) (1) CAD (coronary artery disease) SNOMED Code(s): 56924141 ICD Code: I25.10 - ATHSCL HEART DISEASE OF [place] CORONARY ARTERY W/O ANG PCTRS Status: Acute Current Visit: Yes (2) ANAMIKA (acute kidney injury) SNOMED Code(s): 34102326, 79756719 ICD Code: N17.9 - ACUTE KIDNEY FAILURE, UNSPECIFIED Status: Acute Current Visit: Yes (3) Atrial fibrillation SNOMED Code(s): 01882665 ICD Code: I48.91 - UNSPECIFIED ATRIAL FIBRILLATION Status: Acute Current Visit: Yes (4) CHF (congestive heart failure) SNOMED Code(s): 48199544 ICD Code: I50.9 - HEART FAILURE, UNSPECIFIED Status: Acute Current Visit: Yes - Patient Instructions Diet: Heart Healthy Diet Activity: As Tolerated Showering/Bathing: May Shower Other/Special Instructions: -Return to the hospital if you have chest pain, palpitations, shortness of breath. -Take your medication at scheduled times. -Follow-up with your PCP in 1 to 2 weeks time - Discharge Plan Prescriptions/Med Rec: Furosemide [Lasix] 20 mg PO DAILY #14 tab Home Medications: Home Meds Apixaban [Eliquis] 5 mg PO BID 10/09/20 [History] Aspirin 81 mg PO DAILY 10/09/20 [History] Meloxicam 15 mg PO DAILY 10/09/20 [History] Metoprolol Succinate 37.5 mg PO BID 10/09/20 [History] Nitroglycerin 0.4 mg SL Q5M PRN 10/09/20 [History] Digoxin 1 dose PO DAILY 02/28/21 [History] atorvaSTATin [Lipitor] 1 dose PO DAILY 02/28/21 [History] Furosemide [Lasix] 20 mg PO DAILY #14 tab 03/01/21 [Rx] Patient Handouts: Heart Failure, Self-Care, [id number], Heart Failure, Diagn osis, [id number], Living With Heart Failure, Heart Failure and Exercise, Atrial Fibrillation, [id number], Heart Failure Eating Plan Referrals: Amadou Vaughan NP [Ordering Only Provider] - 03/09/21 9:00 am - Discharge Summary/Plan Comment DC Time >30 min.: Yes Total # of Minutes for Discharge Time: 35 minutes - Review of Systems General: Denies: Weakness, Fatigue, Night Sweats HEENT: Denies: Headaches, Sore Throat Pulmonary: Denies: Shortness of Breath, Cough Cardiovascular: Denies: Chest Pain, Palpitations Gastrointestinal: Denies: Abdominal Pain Genitourinary: Denies: Dysuria - Patient Data Vitals - Most Recent: Last Vital Signs Temp 97.4 F 03/01/21 07:00 Pulse 80 03/01/21 09:58 Resp 17 03/01/21 07:00 BP 112/77 03/01/21 09:58 Pulse Ox 94 L 03/01/21 07:00 Weight - Most Recent: 205 lb 3.2 oz I&O - Last 24 hours: Intake & Output 02/28/21 03/01/21 03/01/21 22:59 06:59 14:59 Intake Total 736 450 Output Total 3250 975 Balance -8086 -932 Lab Results - Last 24 hrs: Laboratory Results - last 24 hr 03/01/21 03/01/21 Range/Units 05:35 05:35 WBC 9.67 (4.0-11.0) K/uL RBC 5.20 (4.50-5.90) M/uL Hgb 16.3 (13.0-17.0) g/dL Hct 47.8 (38.0-50.0) % MCV 91.9 (80.0-98.0) fL MCH 31.3 (27.0-32.0) pg MCHC 34.1 (31.0-37.0) g/dL RDW Std Deviation 48.0 (28.0-62.0) fl RDW Coeff of Ricardo 14 (11.0-15.0) % Plt Count 196 (150-400) K/uL MPV 9.90 (7.40-12.00) fL Neut % (Auto) 55.3 (48.0-80.0) % Lymph % (Auto) 24.4 (16.0-40.0) % Grant % (Auto) 13.8 (0.0-15.0) % Eos % (Auto) 5.9 (0.0-7.0) % Baso % (Auto) 0.6 (0.0-1.5) % Neut # (Auto) 5.4 (1.4-5.7) K/uL Lymph # (Auto) 2.4 (0.6-2.4) K/uL Grant # (Auto) 1.3 H (0.0-0.8) K/uL Eos # (Auto) 0.6 (0.0-0.7) K/uL Baso # (Auto) 0.1 (0.0-0.1) K/uL Nucleated RBC % 0.0 /100WBC Nucleated RBCs # 0 K/uL Sodium 140 (136-148) mmol/L Potassium 4.3 (3.5-5.1) mmol/L Chloride 102 (98-107) mmol/L Carbon Dioxide 30.1 (21.0-32.0) mmol/L BUN 22 H (7.0-18.0) mg/dL Creatinine 1.6 H (0.8-1.3) mg/dL Est Cr Clr Drug Dosing 49.77 mL/min Estimated GFR (MDRD) 43.6 ml/min Glucose 100 (74-106) mg/dL Calcium 8.8 (8.5-10.1) mg/dL Total Bilirubin 1.5 H (0.2-1.0) mg/dL AST 24 (15-37) IU/L ALT 38 (14-63) IU/L Alkaline Phosphatase 109 (46-116) U/L Total Protein 7.6 (6.4-8.2) g/dL Albumin 3.4 (3.4-5.0) g/dL Globulin 4.2 H (2.6-4.0) g/dL Albumin/Globulin Ratio 0.8 L (0.9-1.6) Med Orders - Current: Current Medications Acetaminophen (Acetaminophen 325 Mg Tab) 650 mg PO Q6H PRN PRN Reason: Headache/Pain Apixaban (Apixaban 5 Mg Tab) 5 mg PO BID [facility] Last Admin: 03/01/21 09:59 Dose: 5 mg Documented by: Aspirin (Aspirin 81 Mg Tab.Chew) 81 mg PO DAILY [facility] Last Admin: 03/01/21 09:57 Dose: 81 mg Documented by: Atorvastatin Calcium (Atorvastatin 40 Mg Tab) 40 mg PO DAILY [facility] Last Admin: 03/01/21 09:57 Dose: 40 mg Documented by: Furosemide (Furosemide 40 Mg/4 Ml Vial) 40 mg IVPUSH DAILY [facility] Last Admin: 03/01/21 09:59 Dose: 40 mg Documented by: Metoprolol Succinate (Metoprolol Succinate 50 Mg Tab.Er) 37.5 mg PO BID [facility] Last Admin: 03/01/21 09:58 Dose: 37.5 mg Documented by: Pantoprazole Sodium (Pantoprazole 40 Mg Tab.Cr) 40 mg PO DAILY [facility] Last Admin: 03/01/21 09:59 Dose: 40 mg Documented by: Discontinued Medications Aspirin (Aspirin 81 Mg Tab.Chew) 324 mg PO ONETIME ONE Stop: 02/28/21 02:12 Last Admin: 02/28/21 02:20 Dose: 324 mg Documented by: Enoxaparin Sodium (Enoxaparin 40 Mg/0.4 Ml Syringe) 40 mg SUBCUT Q24H [facility] Last Admin: 02/28/21 12:37 Dose: 40 mg Documented by: Furosemide (Furosemide 40 Mg/4 Ml Vial) 40 mg IVPUSH ONETIME STA Stop: 02/28/21 02:58 Last Admin: 02/28/21 03:11 Dose: 40 mg Documented by: - Exam General: Reports: Alert, Oriented, Cooperative HEENT: Reports: Mucous Membr. Moist/[place] Neck: Reports: Trachea Midline Lungs: Reports: Clear to Auscultation, Normal Respiratory Effort Cardiovascular: Reports: Regular Rate, Regular Rhythm GI/Abdominal Exam: Normal Bowel Sounds, Soft, Non-Tender
[2021-03-01 12:09] VITALS: BP 106/70
--- NOTE | 2021-03-02 14:57 | ECHO ---
EXAM DATE: 02/28/21 PATIENT'S AGE: 65 The ECHO report has been scanned into [employer] and can be seen in this patient's EMR (Electronic Medical Record) under the REPORTS section. The report has also been scanned into PACS. MIKEL
== END 2021-03-01 14:10 | disposition home or self-care (01) | DRG 194 ==
LOC: MW.ED 01:59 → MW.MS 03:31
PROVIDERS: ADMIT Hospitalist; ATTEND Hospitalist
DX: I11.0 Hypertensive heart disease with heart failure (principal); I50.31 Acute diastolic (congestive) heart failure; N17.9 Acute kidney failure, unspecified; I25.10 Atherosclerotic heart disease of native coronary artery without angina pectoris; I48.91 Unspecified atrial fibrillation; E66.9 Obesity, unspecified; I16.0 Hypertensive urgency; Z20.822 Contact with and (suspected) exposure to COVID-19; Z95.1 Presence of aortocoronary bypass graft; Z79.82 Long term (current) use of aspirin; Z79.899 Other long term (current) drug therapy; Z87.891 Personal history of nicotine dependence; Z87.442 Personal history of urinary calculi; I25.2 Old myocardial infarction; Z68.28 Body mass index [BMI] 28.0-28.9, adult
CPT/HCPCS: 0240U; 36415; 71045; 71045-26; 80053; 83735; 83880; 84484; 85025; 93005; 93306; 96374; 99291; A9270-GY; J1650; J1940

== ENCOUNTER 2021-08-23 12:21 | Emergency (ER) | payer BC ==
[2021-08-23] MEDS ORDERED: Sodium Chloride 0.9% 2.5 ML Syringe FLUSH PRN (12:36)
[2021-08-23] MEDS ORDERED: Sodium Chloride 0.9% 10 ML Syringe FLUSH PRN (12:36)
[2021-08-23 13:44] LABS: BLOOD UREA NITROGEN,BUN 15 mg/dL (7.0-18.0); CARBON DIOXIDE,CO2 26.2 mmol/L (21.0-32.0); CHLORIDE,CL 102 mmol/L (98-107); GLUCOSE RANDOM 114 mg/dL (74-106); POTASSIUM,K 3.4 mmol/L (3.5-5.1); SODIUM,NA 139 mmol/L (136-148)
[2021-08-23 13:48] LABS: CORONAVIRUS COVID-19 NAA NEGATIVE (NEGATIVE); INFLUENZA A NAA NEGATIVE (NEGATIVE); INFLUENZA B NAA NEGATIVE (NEGATIVE)
[2021-08-23 14:25] VITALS: BP 130/80; PULSE 63
== END 2021-08-23 14:24 | disposition home or self-care (01) ==
LOC: MW.ED 12:21
DX: R06.02 Shortness of breath (principal); E66.9 Obesity, unspecified; Z68.30 Body mass index [BMI] 30.0-30.9, adult; Z79.82 Long term (current) use of aspirin; Z79.01 Long term (current) use of anticoagulants; Z79.899 Other long term (current) drug therapy; Z20.822 Contact with and (suspected) exposure to COVID-19
CPT/HCPCS: 0240U; 36415; 71045; 71045-26; 80053; 83880; 84484; 85025; 85379; 93005; 93010; 99284; 99285-25; J3490

== ENCOUNTER 2024-01-25 19:20 | Observation (INO) | payer BC, MEDICARE ==
[2024-01-25 19:42] LABS: BASOPHILS ABSOLUTE AUTO 0.08 K/uL (0.00-0.20); EOSINOPHILS ABSOLUTE AUTO 0.28 K/uL (0.00-0.45); EOSINOPHILS PERCENT AUTO 3.6 % (0.0-6.0); HEMATOCRIT 44.2 % (42.0-52.0); HEMOGLOBIN 15.3 g/dL (14.0-18.0); IMMATURE GRAN ABSOLUTE AUTO 0.03 K/uL (0.00-0.05); IMMATURE GRAN PERCENT AUTO 0.4 % (0.0-0.4); LYMPHOCYTES ABSOLUTE AUTO 0.68 K/uL (1.00-4.80); LYMPHOCYTES PERCENT AUTO 8.9 % (24.0-44.0); MEAN CORPUSCULAR HEMOGLOBIN 31.6 pg (28.0-32.0); MEAN CORPUSCULAR HGB CONC 34.6 g/dL (32.0-36.0); MEAN CORPUSCULAR VOLUME 91.3 fL (83.0-99.0); MEAN PLATELET VOLUME 9.4 fL (9.4-12.4); MONOCYTES ABSOLUTE AUTO 1.16 K/uL (0.00-0.80); MONOCYTES PERCENT AUTO 15.1 % (0.0-8.0); NEUTROPHILS ABSOLUTE AUTO 5.45 K/uL (1.80-7.70); PLATELET COUNT,PLT 168 K/uL (150-400); RED BLOOD CELL COUNT 4.84 M/uL (4.52-5.90); WHITE BLOOD CELL COUNT,WBC 7.68 K/uL (3.9-11.3)
[2024-01-25 19:58] LABS: A/G RATIO 0.9 (0.9-1.6); ALANINE AMINOTRANSFERASE,ALT 33 IU/L (14-63); ALBUMIN 3.7 g/dL (3.4-5.0); ALKALINE PHOSPHATASE 96 U/L (46-116); ASPARTATE AMNIOTRANSFERASE,AST 27 IU/L (15-37); BILIRUBIN TOTAL 0.8 mg/dL (0.2-1.0); BLOOD UREA NITROGEN,BUN 16 mg/dL (7.0-18.0); CALCIUM 9.1 mg/dL (8.5-10.1); CARBON DIOXIDE,CO2 26.6 mmol/L (21.0-32.0); CHLORIDE,CL 102 mmol/L (98-107); CREATININE 1.4 mg/dL (0.8-1.3); GLUCOSE RANDOM 126 mg/dL (74-106); PROTEIN TOTAL,TP 7.6 g/dL (6.4-8.2); SODIUM,NA 139 mmol/L (136-148)
[2024-01-25 19:59] LABS: ESTIMATED GFR 55 mL/min (>60)
[2024-01-26] MEDS: Aspirin 81 MG Tab.Chew PO ONE (01:33)
[2024-01-26] MEDS ORDERED: Ondansetron 4 MG/2 ML SDV IVPUSH PRN (02:26)
[2024-01-26] MEDS ORDERED: Acetaminophen 325 MG Tab PO PRN (02:26)
[2024-01-26] MEDS ORDERED: Melatonin 3 MG Tab PO PRN (02:26)
[2024-01-26] MEDS ORDERED: Polyethylene Glycol 3350 Powder 17 GM Packet PO PRN (02:26)
[2024-01-26] MEDS ORDERED: Nitroglycerin 0.4 MG Tab.SL SL PRN (02:28)
[2024-01-26] MEDS: Sodium Chloride 0.9% 500 ML IV SCH (05:18)
[2024-01-26 06:47] LABS: HEMATOCRIT 47.5 % (42.0-52.0); HEMOGLOBIN 15.8 g/dL (14.0-18.0); MEAN CORPUSCULAR HEMOGLOBIN 31.1 pg (28.0-32.0); MEAN CORPUSCULAR HGB CONC 33.3 g/dL (32.0-36.0); MEAN CORPUSCULAR VOLUME 93.5 fL (83.0-99.0); MEAN PLATELET VOLUME 9.4 fL (9.4-12.4); PLATELET COUNT,PLT 144 K/uL (150-400); RED BLOOD CELL COUNT 5.08 M/uL (4.52-5.90); WHITE BLOOD CELL COUNT,WBC 6.87 K/uL (3.9-11.3)
[2024-01-26 07:16] LABS: CALCIUM 8.9 mg/dL (8.5-10.1); CARBON DIOXIDE,CO2 33.6 mmol/L (21.0-32.0); CREATININE 1.4 mg/dL (0.8-1.3); EST CRCL DRUG DOSING (CG) 53.79 mL/min; POTASSIUM,K 4.6 mmol/L (3.5-5.1)
[2024-01-26 08:06] LABS: BAND ABSOLUTE MAN 0.27; BAND PERCENT MAN 4 %; EOSINOPHILS ABSOLUTE MAN 0.48 K/uL (0.00-0.45); EOSINOPHILS PERCENT MAN 7 % (0-6); LYMPHOCYTES ABSOLUTE MAN 1.31 K/uL (1.00-4.80); LYMPHOCYTES PERCENT MAN 19 % (24-44); MONOCYTES ABSOLUTE MAN 0.89 K/uL (0.00-0.80); MONOCYTES PERCENT MAN 13 % (0-8); SEG NEUTROPHILS ABSOLUTE MAN 3.78 K/uL (1.80-7.70); SEG NEUTROPHILS PERCENT MAN 55 % (41-71)
[2024-01-26 08:07] LABS: BASOPHILS ABSOLUTE MAN 0.14 K/uL (0.00-0.20); BASOPHILS PERCENT MAN 2 % (0-1)
[2024-01-26 08:42] VITALS: BP 120/57; PULSE 78
[2024-01-26] MEDS: Metoprolol Succinate 50 MG Tab.ER PO SCH (08:47)
[2024-01-26] MEDS: Apixaban 5 MG Tab PO SCH (08:47)
== END 2024-01-26 10:45 | disposition home or self-care (01) ==
LOC: MW.ED 19:20 → MW.MS 01-26 01:26
PROVIDERS: ADMIT Family Medicine; ATTEND Family Medicine
DX: R07.2 Precordial pain (principal); I48.91 Unspecified atrial fibrillation; I10 Essential (primary) hypertension; Z79.01 Long term (current) use of anticoagulants; Z79.899 Other long term (current) drug therapy
CPT/HCPCS: 36415; 71046; 80048; 80053; 83735; 84484; 85025; 93005; 96360; 99285; A9270; G0378; J7040; 93010; 99234; 99284

== ENCOUNTER 2024-01-29 06:21 | Emergency (ER) | payer BC, MEDICARE ==
[2024-01-29 07:57] VITALS: BP 132/52; PULSE 68
[2024-01-29] MEDS ORDERED: Sodium Chloride 0.9% 2.5 ML Syringe FLUSH PRN (09:14)
[2024-01-29 09:59] LABS: BASOPHILS ABSOLUTE AUTO 0.06 K/uL (0.00-0.20); BASOPHILS PERCENT AUTO 0.6 % (0.0-1.0); EOSINOPHILS ABSOLUTE AUTO 0.28 K/uL (0.00-0.45); EOSINOPHILS PERCENT AUTO 2.6 % (0.0-6.0); HEMATOCRIT 45.7 % (42.0-52.0); HEMOGLOBIN 15.8 g/dL (14.0-18.0); IMMATURE GRAN ABSOLUTE AUTO 0.06 K/uL (0.00-0.05); IMMATURE GRAN PERCENT AUTO 0.6 % (0.0-0.4); LYMPHOCYTES ABSOLUTE AUTO 1.86 K/uL (1.00-4.80); LYMPHOCYTES PERCENT AUTO 17.2 % (24.0-44.0); MEAN CORPUSCULAR HEMOGLOBIN 31.9 pg (28.0-32.0); MEAN CORPUSCULAR HGB CONC 34.6 g/dL (32.0-36.0); MEAN CORPUSCULAR VOLUME 92.1 fL (83.0-99.0); MEAN PLATELET VOLUME 9.2 fL (9.4-12.4); MONOCYTES ABSOLUTE AUTO 1.01 K/uL (0.00-0.80); MONOCYTES PERCENT AUTO 9.3 % (0.0-8.0); NEUTROPHILS ABSOLUTE AUTO 7.55 K/uL (1.80-7.70); NEUTROPHILS PERCENT AUTO 69.7 % (41.0-71.0); PLATELET COUNT,PLT 155 K/uL (150-400); RED BLOOD CELL COUNT 4.96 M/uL (4.52-5.90); WHITE BLOOD CELL COUNT,WBC 10.82 K/uL (3.9-11.3)
[2024-01-29 10:13] LABS: INR 1.07 (0.86-1.11)
[2024-01-29] MEDS: Sodium Chloride 0.9% 10 ML Syringe FLUSH PRN (10:21)
[2024-01-29] MEDS: fentaNYL 50 MCG/ML SDV IVPUSH ONE (10:21)
[2024-01-29] MEDS: Ondansetron 4 MG/2 ML SDV IVPUSH ONE (10:21)
[2024-01-29 10:23] LABS: A/G RATIO 0.9 (0.9-1.6); ALBUMIN 3.8 g/dL (3.4-5.0); BILIRUBIN TOTAL 0.8 mg/dL (0.2-1.0); CALCIUM 8.9 mg/dL (8.5-10.1); CARBON DIOXIDE,CO2 28.7 mmol/L (21.0-32.0); CREATININE 1.3 mg/dL (0.8-1.3); EST CRCL DRUG DOSING (CG) 57.92 mL/min; POTASSIUM,K 3.9 mmol/L (3.5-5.1); PROTEIN TOTAL,TP 7.9 g/dL (6.4-8.2)
== END 2024-01-29 10:32 ==
LOC: MW.ED 06:21
DX: T81.719A Complication of unspecified artery following a procedure, not elsewhere classified, initial encounter (principal); I48.91 Unspecified atrial fibrillation; I10 Essential (primary) hypertension; E78.00 Pure hypercholesterolemia, unspecified; E66.9 Obesity, unspecified; Z95.5 Presence of coronary angioplasty implant and graft; Z75.8 Other problems related to medical facilities and other health care; Z79.01 Long term (current) use of anticoagulants; Z79.899 Other long term (current) drug therapy
CPT/HCPCS: 36415; 80053; 85025; 85610; 93926; 96374; 96375; 99285; J2405; J3010; J3490

== ENCOUNTER 2024-09-14 15:54 | Observation (INO) | payer BC, MEDICARE ==
[2024-09-14] MEDS ORDERED: Sodium Chloride 0.9% 10 ML Syringe FLUSH PRN ×2 (16:36→20:09)
[2024-09-14] MEDS ORDERED: Sodium Chloride 0.9% 2.5 ML Syringe FLUSH PRN ×2 (16:36→20:09)
[2024-09-14] MEDS ORDERED: Sodium Chloride 0.9% 20 ML SDV IV PRN (16:36)
[2024-09-14] MEDS: Albuterol/Ipratropium 3.0-0.5 MG/3 ML Neb Soln NEB ONE (17:30)
[2024-09-14 17:36] LABS: BASOPHILS ABSOLUTE AUTO 0.04 K/uL (0.00-0.20); BASOPHILS PERCENT AUTO 0.5 % (0.0-1.0); EOSINOPHILS ABSOLUTE AUTO 0.33 K/uL (0.00-0.45); EOSINOPHILS PERCENT AUTO 4.5 % (0.0-6.0); HEMATOCRIT 47.5 % (42.0-52.0); HEMOGLOBIN 16.2 g/dL (14.0-18.0); IMMATURE GRAN ABSOLUTE AUTO 0.03 K/uL (0.00-0.05); IMMATURE GRAN PERCENT AUTO 0.4 % (0.0-0.4); LYMPHOCYTES ABSOLUTE AUTO 1.28 K/uL (1.00-4.80); LYMPHOCYTES PERCENT AUTO 17.5 % (24.0-44.0); MEAN CORPUSCULAR HEMOGLOBIN 31.8 pg (28.0-32.0); MEAN CORPUSCULAR HGB CONC 34.1 g/dL (32.0-36.0); MEAN CORPUSCULAR VOLUME 93.3 fL (83.0-99.0); MEAN PLATELET VOLUME 9.4 fL (9.4-12.4); MONOCYTES ABSOLUTE AUTO 1.14 K/uL (0.00-0.80); MONOCYTES PERCENT AUTO 15.6 % (0.0-8.0); NEUTROPHILS ABSOLUTE AUTO 4.48 K/uL (1.80-7.70); NEUTROPHILS PERCENT AUTO 61.5 % (41.0-71.0); PLATELET COUNT,PLT 161 K/uL (150-400); RED BLOOD CELL COUNT 5.09 M/uL (4.52-5.90)
[2024-09-14 18:04] LABS: LACTIC ACID 0.9 mmol/L (0.4-2.0)
[2024-09-14 18:05] LABS: BILIRUBIN TOTAL 0.9 mg/dL (0.2-1.0); CALCIUM 9.2 mg/dL (8.5-10.1); CARBON DIOXIDE,CO2 28.5 mmol/L (21.0-32.0); CREATININE 1.5 mg/dL (0.8-1.3); EST CRCL DRUG DOSING (CG) 51.01 mL/min; MAGNESIUM 1.9 mg/dL (1.8-2.4); POTASSIUM,K 3.7 mmol/L (3.5-5.1); PROTEIN TOTAL,TP 7.9 g/dL (6.4-8.2)
[2024-09-14] MEDS: Iopamidol 755 MG/ML 500 ML Multipack Bottle IVPUSH STA (18:19)
[2024-09-14 18:51] LABS: APPEARANCE,URINE CLEAR; BILIRUBIN,URINE NEGATIVE (NEGATIVE); COLOR,URINE YELLOW; GLUCOSE,URINE NEGATIVE (NEGATIVE); KETONES,URINE NEGATIVE (NEGATIVE); LEUKOCYTE ESTERASE,URINE NEGATIVE (NEGATIVE); NITRITE,URINE NEGATIVE (NEGATIVE); OCCULT BLOOD,URINE TRACE-LYSED (NEGATIVE); PH,URINE 5.5 (5.0-8.0); PROTEIN,URINE NEGATIVE (NEGATIVE); UROBILINOGEN,URINE 0.2 EU/dL (<2.0)
[2024-09-14 19:01] LABS: BACTERIA,URINE RARE (NEGATIVE); EPITHELIAL CELLS,URINE OCCASIONAL (NONE-FEW); MUCUS,URINE LIGHT (NONE-MOD); RBC,URINE 0-3 (0-2/HPF); WBC,URINE 0-2 (0-5/HPF)
[2024-09-14] MEDS: Furosemide 40 MG/4 ML VIAL IVPUSH ONE (19:32)
[2024-09-14] MEDS ORDERED: Albuterol/Ipratropium 3.0-0.5 MG/3 ML Neb Soln NEB PRN (20:09)
[2024-09-14] MEDS ORDERED: Melatonin 3 MG Tab PO PRN (20:09)
[2024-09-14] MEDS ORDERED: Polyethylene Glycol 3350 Powder 17 GM Packet PO PRN (20:09)
[2024-09-14] MEDS ORDERED: Nitroglycerin 0.4 MG Tab.SL SL PRN (20:12)
[2024-09-14] MEDS: Acetaminophen 325 MG Tab PO PRN (22:11)
[2024-09-14] MEDS: Metoprolol Succinate 50 MG Tab.ER PO SCH (22:16)
[2024-09-14] MEDS: Apixaban 5 MG Tab PO SCH (22:16)
[2024-09-14] MEDS: atorvaSTATin 40 MG Tab PO SCH (22:16)
[2024-09-15 05:53] LABS: BASOPHILS ABSOLUTE AUTO 0.03 K/uL (0.00-0.20); BASOPHILS PERCENT AUTO 0.3 % (0.0-1.0); EOSINOPHILS ABSOLUTE AUTO 0.27 K/uL (0.00-0.45); EOSINOPHILS PERCENT AUTO 2.9 % (0.0-6.0); HEMATOCRIT 43.7 % (42.0-52.0); HEMOGLOBIN 15.2 g/dL (14.0-18.0); IMMATURE GRAN ABSOLUTE AUTO 0.03 K/uL (0.00-0.05); IMMATURE GRAN PERCENT AUTO 0.3 % (0.0-0.4); LYMPHOCYTES ABSOLUTE AUTO 1.14 K/uL (1.00-4.80); LYMPHOCYTES PERCENT AUTO 12.2 % (24.0-44.0); MEAN CORPUSCULAR HEMOGLOBIN 31.7 pg (28.0-32.0); MEAN CORPUSCULAR HGB CONC 34.8 g/dL (32.0-36.0); MEAN PLATELET VOLUME 9.4 fL (9.4-12.4); MONOCYTES PERCENT AUTO 16.1 % (0.0-8.0); NEUTROPHILS ABSOLUTE AUTO 6.37 K/uL (1.80-7.70); NEUTROPHILS PERCENT AUTO 68.2 % (41.0-71.0); PLATELET COUNT,PLT 159 K/uL (150-400); WHITE BLOOD CELL COUNT,WBC 9.34 K/uL (3.9-11.3)
[2024-09-15 06:13] LABS: CALCIUM 8.7 mg/dL (8.5-10.1); CARBON DIOXIDE,CO2 26.5 mmol/L (21.0-32.0); CREATININE 1.3 mg/dL (0.8-1.3); EST CRCL DRUG DOSING (CG) 57.99 mL/min; MAGNESIUM 1.7 mg/dL (1.8-2.4); POTASSIUM,K 3.2 mmol/L (3.5-5.1)
[2024-09-15] MEDS: Potassium Chloride 20 MEQ Tab.ER PO SCH (08:29)
[2024-09-15] MEDS: Lisinopril 5 MG Tab PO SCH (08:30)
[2024-09-15] MEDS: Magnesium Sulfate 2 GM/50 mL 2 GM in Premix Bag 1 BAG IV ONE (08:31)
[2024-09-15] MEDS: Furosemide 40 MG/4 ML VIAL IVPUSH SCH (08:31)
[2024-09-15] MEDS: guaiFENesin 600 MG Tab.ER PO SCH (08:49)
[2024-09-15] MEDS ORDERED: Furosemide 40 MG/4 ML VIAL IVPUSH SCH (09:00)
[2024-09-15 13:08] VITALS: BP 127/61; PULSE 88
[2024-09-15] MEDS ORDERED: atorvaSTATin 40 MG Tab PO SCH (21:00)
== END 2024-09-15 12:30 | disposition home or self-care (01) ==
LOC: MW.ED 15:54 → MW.MS 19:26
PROVIDERS: ADMIT Family Medicine; ATTEND Family Medicine
DX: I11.0 Hypertensive heart disease with heart failure (principal); I50.9 Heart failure, unspecified; I48.20 Chronic atrial fibrillation, unspecified; I25.10 Atherosclerotic heart disease of native coronary artery without angina pectoris; E78.00 Pure hypercholesterolemia, unspecified; Z95.1 Presence of aortocoronary bypass graft; Z79.01 Long term (current) use of anticoagulants; Z79.899 Other long term (current) drug therapy
CPT/HCPCS: 36415; 71046; 71275; 80048; 80053; 81001; 83605; 83735; 83880; 84484; 85025; 93005; 93306; 96365; 96366; 96375; 96376; 99285; A9270; G0378; J1938; J3475; J7620; Q9967; 96374; 99283